=== PATIENT | male | born 1990 | race Two or more races ===

== ENCOUNTER 2017-05-22 14:23 | Emergency (ER) | payer SELFPAY ==
[~2017-05-22] VITALS: Ht 165.1 cm; Wt 72.6 kg
[2017-05-22] MEDS ORDERED: NAPROXEN 500 MG TABLET PO SCH (16:30)
[2017-05-22] MEDS ORDERED: NAPROXEN 250 MG TABLET ONE (16:54)
--- NOTE | 2017-05-22 16:59 | NUR ---
Patient discharged to [facility] in stable condition. Written and verbal after care instructions given. Patient verbalizes understanding of instruction.
[2017-05-22 17:01] VITALS: BP 138/80
== END 2017-05-22 17:01 ==
LOC: ER 14:27
DX: S01.01XA Laceration without foreign body of scalp, initial encounter (principal); S60.031A Contusion of right middle finger without damage to nail, initial encounter; Y04.0XXA Assault by unarmed brawl or fight, initial encounter; Y93.89 Activity, other specified; Y92.89 Other specified places as the place of occurrence of the external cause; Y99.8 Other external cause status
CPT/HCPCS: 12001; 29130; 73140; 99284; A4606; A6403; Z7610